=== PATIENT | female | born 1980 | race Caucasian/White ===

== ENCOUNTER 2021-12-05 17:08 | Inpatient (IN) | payer OTHER, SELFPAY ==
[2021-12-05] VITALS (26 sets, daily range): BP systolic 112–178; BP diastolic 55–89; PULSE 57–81; TEMP 36.8–37.3; O2SAT 100
--- OUTSIDE RECORDS SUMMARY | 2021-12-05 18:38 | XMS_ITS ---
:1980 Author Care Team Providers Name Role Phone JANETTE ACEVEDO MD Spear Fisher [phone] Allergies Code Code System Name Reaction Severity Status Onset Sulfa ? ? Active ? (Sulfonamid e Antibiotics ) Medications Name Status Start Date Stop Date ? ? azithromycin 500 mg tablet Completed ? 05/23 TAKE 2 TABLETS BY MOUTH AT THE SAME TIME WITH FOOD DIRECTED BY BD Regular Bevel [place] 27 gauge x 1/2 Active ? Not available TO ADMINISTER MENOPUR estradiol 2 mg tablet Active ? Not availa ble TAKE 1 TABLET BY MOUTH TWICE DAILY WHEN DIRECTED BY medroxyprogesterone 10 mg tablet Completed ? 05/23/2021 methylprednisolone 8 mg tablet Completed ? 0 05/23/2021 TAKE 1 TABLET BY MOUTH TWICE DAILY FOR 5 DAYS DIRECTED BY MD Lamar () 0.25 mg-35 mcg tablet Active ? Not available TAKE 1 TABLET BY MOUTH ONCE DAILY. TAKE ONLY ACTIVE PILLS. Problems Name Status Onset Date Source ? Irregular Periods Active 05/23/2021 ? Unknown 05/23/2021 ? Procedures Date Name Performed by ? 06/15/2021 US, Obstetric, Maternal Imaging Floridalma mariee D/B/A [facility] Imaging Evaluation + Anatomy [address] [place] [address] (Work Place) Results
--- OUTSIDE RECORDS SUMMARY | 2021-12-05 18:39 | XMS_ITS | Encounter Summary ---
:1980 Author Reason for Visit OB visit [id number] Assessment and Plan 1. Routine care 2. Vaginitis Discussed use of mild soap lik e dove or ivory, cotton underwear w/out dye, hypoallergenic detergent, wipe from fron t to back, avoid tub baths, keep perineum clean and dry, d/c use of baby wipes. En couraged daily intake of yogurt or womens health probiotic. Internal and external affirm collected. ? Diflucan 150 mg tablet Discussion Note: None recorded.Patient educational handouts: No information available. Plan of Care Reminders Provider Appointments Ob Problem Sonny Chappell, [facility] 12/06/2021 9:30AM ? Induction Chula Najera, 12/07/2021 CN 5:00AM ? Ob Routine Stephanie Chappell CNM 12/10/2021 11:15AM Lab None ? ? recorded. Referral None ? ? recorded. Procedures None ? ? recorded. Surgeries None ? ? recorded. Imaging None ? ? recorded. Medications Name Start Date ? ? ? Medications Administered None recorded. Vitals Height Weight BMI Blood Pressure
--- OUTSIDE RECORDS SUMMARY | 2021-12-05 18:39 | XMS_ITS | Encounter Summary ---
:1980 Author Reason for Visit None recorded. Assessment and Plan 1. Placenta circumvallata ? US, obstetric, follow-up Discussion Note: None recorded.Patient educational handouts: No information available. Plan of Care Reminders Provider Appointments Ob Problem Sonny Chappell, [facility] 12/06/2021 9:30AM ? Induction Chula Najera, 12/07/2021 CN 5:00AM ? Ob Routine Stephanie Chappell, [facility] 12/10/2021 11:15AM Lab None ? ? recorded. Referral None ? ? recorded. Procedures None ? ? recorded. Surgeries None ? ? recorded. Imaging , [place] [facility], Follow-up 09/17/2021 Medications Name Start Date ? ? ? Medications Administered None recorded. Vitals None recorded. Results Lab Results None recorded. Allergies Code Code System Name Reaction Severity Onset Sulfa ? ? ? (Sulfonamide Antibiotics)
--- OUTSIDE RECORDS SUMMARY | 2021-12-05 18:39 | XMS_ITS | Encounter Summary ---
:1980 Author Reason for Visit NST [id number] EDC 12/07/2021 Assessment and Plan 1. Low lying placenta ? non-stress test Discussion Note: None recorded.Patient educational handouts: No information available. Plan of Care Reminders Provider Appointments Ob Problem Sonny Chappell, [facility] 12/06/2021 9:30AM ? Induction Chula Najera, 12/07/2021 CN 5:00AM ? Ob Routine Stephanie Chappell, [facility] 12/10/2021 11:15AM Lab None ? ? recorded. Referral None ? ? recorded. Procedures None ? ? recorded. Surgeries None ? ? recorded. Imaging Non-stress [place] Test 11/12/2021 Medications Name Start Date ? ? ? Medications Administered None recorded. Vitals Height 5 ft 3 in Results Lab Results None recorded. Allergies Code Code System Name Reaction Severity Onset Sulfa ? ? ? (Sulfonamide An
--- OUTSIDE RECORDS SUMMARY | 2021-12-05 18:39 | XMS_ITS | Encounter Summary ---
:1980 Author Reason for Visit NST [id number] EDC 12/07/2021 Assessment and Plan 1. Low lying placenta ? non-stress test Discussion Note: None recorded.Patient educational handouts: No information available. Plan of Care Reminders Provider Appointments Ob Problem Sonny Chappell, [facility] 12/06/2021 9:30AM ? Induction Chula Najera, 12/07/2021 CN 5:00AM ? Ob Routine Stephanie Chappell, [facility] 12/10/2021 11:15AM Lab None ? ? recorded. Referral None ? ? recorded. Procedures None ? ? recorded. Surgeries None ? ? recorded. Imaging Non-stress [place] Test 11/26/2021 Medications Name Start Date ? ? ? Medications Administered None recorded. Vitals Height Weight BMI Blood Pressure 5 ft 3 in 196 lbs 34.7 kg/m2 109/72 mm[Hg] Results Lab Results None recorded. Allergies Code Code System Name Reaction Severity Onset Sulfa ? ? ? (Sulfonamide
--- OUTSIDE RECORDS SUMMARY | 2021-12-05 18:39 | XMS_ITS | Encounter Summary ---
:1980 Author Reason for Visit OB visit Assessment and Plan 1. Routine care Discussion Note: None recorded.Patient educational handouts: No information available. Plan of Care Reminders Provider Appointments Ob Problem Sonny Chappell, [facility] 12/06/2021 9:30AM ? Induction Chula Najera, 12/07/2021 CNM 5:00AM ? Ob Routine Stephanie Chappell, [facility] 12/10/2021 11:15AM Lab None ? ? recorded. Referral None ? ? recorded. Procedures None ? ? recorded. Surgeries None ? ? recorded. Imaging None ? ? recorded. Medications Name Start Date ? ? ? Medications Administered None recorded. Vitals Height Weight BMI Blood Pressure 5 ft 3 in 195 lbs 34.5 kg/m2 115/71 mm[Hg] Results Lab Results None recorded. Allergies Code Code System Name Reaction Severity Onset Sulfa ? ? ? (Sulfonamide Antibiotics)
--- OUTSIDE RECORDS SUMMARY | 2021-12-05 18:39 | XMS_ITS | Encounter Summary ---
:1980 Author Reason for Visit OB visit Assessment and Plan 1. Advanced maternal age 2. IVF - in-vitro fertilization Discussion Note: None recorded.Patient educational handouts: No information available. Plan of Care Reminders Provider Appointments Ob Problem Sonny Chappell, [facility] 12/06/2021 9:30AM ? Induction Chula Najera, 12/07/2021 CN 5:00AM ? Ob Routine Stephanie Chappell [facility] 12/10/2021 11:15AM Lab None ? ? recorded. Referral None ? ? recorded. Procedures None ? ? recorded. Surgeries None ? ? recorded. Imaging None ? ? recorded. Medications Name Start Date ? ? ? Medications Administered None recorded. Vitals Height Weight BMI Blood Pressure 5 ft 3 in 195 lbs 34.5 kg/m2 116/73 mm[Hg] Results Lab Results None recorded. Allergies Code Code System Name Reaction Severity Onset Sulfa ? ? ? (Sulfonamide Antibiotics)
--- OUTSIDE RECORDS SUMMARY | 2021-12-05 18:39 | XMS_ITS | Encounter Summary ---
:1980 Author Reason for Visit None recorded. Assessment and Plan 1. IVF - in-vitro fertilization ? US, obstetric, biophysical profile + non-stress test Discussion Note: None recorded.Patient educational handouts: No information available. Plan of Care Reminders Provider Appointments Ob Problem Sonny Chappell, [facility] 12/06/2021 9:30AM ? Induction Chula Najera, 12/07/2021 CN 5:00AM ? Ob Routine Stephanie Chappell, [facility] 12/10/2021 11:15AM Lab None recorded. ? ? Referral None recorded. ? ? Procedures None recorded. ? ? Surgeries None recorded. ? ? Imaging US, Obstetric, [facility] Biophysical Profile + 11/26/2021 Non-stress Test Medications Name Start Date ? ? ? Medications Administered None recorded. Vitals None recorded. Results Lab Results None recorded. Allergies Code Code System Name Reaction Severity Onset Sulfa ? ? ? (Sulfonamide
--- OUTSIDE RECORDS SUMMARY | 2021-12-05 18:39 | XMS_ITS | Encounter Summary ---
:1980 Author Reason for Visit None recorded. Assessment and Plan 1. IVF - in-vitro fertilization ? non-stress test Discussion Note: None recorded.Patient educational handouts: No information available. Plan of Care Reminders Provider Appointments Ob Problem Sonny Chappell, [facility] 12/06/2021 9:30AM ? Induction Chula Najera, 12/07/2021 CN 5:00AM ? Ob Routine Stephanie Chappell, [facility] 12/10/2021 11:15AM Lab None ? ? recorded. Referral None ? ? recorded. Procedures None ? ? recorded. Surgeries None ? ? recorded. Imaging Non-stress [place] [facility] 12/03/2021 Medications Name Start Date ? ? ? Medications Administered None recorded. Vitals None recorded. Results Lab Results None recorded. Allergies Code Code System Name Reaction Severity Onset Sulfa ? ? ? (Sulfonamide Antibiotics)
--- OUTSIDE RECORDS SUMMARY | 2021-12-05 18:39 | XMS_ITS | Encounter Summary ---
:1980 Author Reason for Visit None recorded. Assessment and Plan 1. AND/OR placental disord er affecting management of mother ? US, obstetric, follow-up Discussion Note: None recorded.Patient educational handouts: No information available. Plan of Care Reminders Provider Appointments Ob Problem Sonny Chappell, [facility] 12/06/2021 9:30AM ? Induction Chula Najera, 12/07/2021 CN 5:00AM ? Ob Routine Stephanie Chappell, [facility] 12/10/2021 11:15AM Lab None ? ? recorded. Referral None ? ? recorded. Procedures None ? ? recorded. Surgeries None ? ? recorded. Imaging , [place] [facility], Follow-up 10/15/2021 Medications Name Start Date ? ? ? Medications Administered None recorded. Vitals None recorded. Results Lab Results None recorded. Allergies Code Code System Name Reaction Severity Onset Sulfa ? ? ? (Sulfonamide Antibiotics)
--- OUTSIDE RECORDS SUMMARY | 2021-12-05 18:39 | XMS_ITS | Encounter Summary ---
:1980 Author Reason for Visit None recorded. Assessment and Plan 1. IVF - in-vitro fertilization ? US, obstetric, biophysical profile + non-stress test Discussion Note: None recorded.Patient educational handouts: No information available. Plan of Care Reminders Provider Appointments Ob Problem Sonny Chappell, [facility] 12/06/2021 9:30AM ? Induction Chula Najera, 12/07/2021 CNM 5:00AM ? Ob Routine Stephanie Chappell, [facility] 12/10/2021 11:15AM Lab None recorded. ? ? Referral None recorded. ? ? Procedures None recorded. ? ? Surgeries None recorded. ? ? Imaging US, Obstetric, [facility] Biophysical Profile + 12/03/2021 Non-stress Test Medications Name Start Date ? ? ? Medications Administered None recorded. Vitals None recorded. Results Lab Results None recorded. Allergies Code Code System Name Reaction Severity Onset Sulfa ? ? ? (Sulfonamide
--- OUTSIDE RECORDS SUMMARY | 2021-12-05 18:39 | XMS_ITS | Encounter Summary ---
:1980 Author Reason for Visit OB visit pt is here today for her 30 week ob visi t. Assessment and Plan 1. Routine care Discussion Note: None recorded.Patient educational handouts: No information available. Plan of Care Reminders Provider Appointments Ob Problem Sonny Chappell, [facility] 12/06/2021 9:30AM ? Induction Chula Najera, 12/07/2021 CN 5:00AM ? Ob Routine Stephanie Chappell, [facility] 12/10/2021 11:15AM Lab None ? ? recorded. Referral None ? ? recorded. Procedures None ? ? recorded. Surgeries None ? ? recorded. Imaging None ? ? recorded. Medications Name Start Date ? ? ? Medications Administered None recorded. Vitals Height Weight BMI Blood Pressure 5 ft 3 in 194.8 lbs 34.5 kg/m2 110/64 mm[Hg] Results Lab Results None recorded. Allergies Code Code System Name Reaction Severity Onset Sulfa ? ? ? (Sulfonamide Antibiotics)
--- OUTSIDE RECORDS SUMMARY | 2021-12-05 18:39 | XMS_ITS | Encounter Summary ---
:1980 Author Reason for Visit OB visit 32w3d / NST scheduled with emi Assessment and Plan 1. Routine care Discussion Note: None recorded.Patient educational handouts: No information available. Plan of Care Reminders Provider Appointments Ob Problem Sonny Chappell, [facility] 12/06/2021 9:30AM ? Induction Chula Najera, 12/07/2021 CN 5:00AM ? Ob Routine Setphanie Chappell, [facility] 12/10/2021 11:15AM Lab None ? ? recorded. Referral None ? ? recorded. Procedures None ? ? recorded. Surgeries None ? ? recorded. Imaging None ? ? recorded. Medications Name Start Date ? ? ? Medications Administered None recorded. Vitals Height Weight BMI Blood Pressure 5 ft 3 in 196 lbs 34.7 kg/m2 107/73 mm[Hg] Results Lab Results None recorded. Allergies Code Code System Name Reaction Severity Onset Sulfa ? ? ? (Sulfonamide Antibiotics)
--- OUTSIDE RECORDS SUMMARY | 2021-12-05 18:39 | XMS_ITS | Encounter Summary ---
:1980 Author Reason for Visit None recorded. Assessment and Plan 1. Placenta circumvallata ? US, obstetric, follow-up Discussion Note: None recorded.Patient educational handouts: No information available. Plan of Care Reminders Provider Appointments Ob Problem Sonny Chappell, [facility] 12/06/2021 9:30AM ? Induction Chula Najera, 12/07/2021 CN 5:00AM ? Ob Routine Stephanie Chappell, [facility] 12/10/2021 11:15AM Lab None ? ? recorded. Referral None ? ? recorded. Procedures None ? ? recorded. Surgeries None ? ? recorded. Imaging , [place] [facility], Follow-up 11/12/2021 Medications Name Start Date ? ? ? Medications Administered None recorded. Vitals None recorded. Results Lab Results None recorded. Allergies Code Code System Name Reaction Severity Onset Sulfa ? ? ? (Sulfonamide Antibiotics)
--- OUTSIDE RECORDS SUMMARY | 2021-12-05 18:39 | XMS_ITS | Encounter Summary ---
:1980 Author Reason for Visit OB visit OB [id number] MAYRA 12/07/2021 LMP 03/01/2021 Assessment and Plan Assessment Note Patient is _39__weeks . Dis cussed plan. 1. Routine care Discussion Note: None recorded.Patient educational handouts: No information available. Plan of Care Reminders Provider Appointments Ob Problem Sonny Chappell, CN 12/06/2021 9:30AM ? Induction Chula Najera, 12/07/2021 CNM 5:00AM ? Ob Routine Stephanie Chappell, [facility] 12/10/2021 11:15AM Lab None ? ? recorded. Referral None ? ? recorded. Procedures None ? ? recorded. Surgeries None ? ? recorded. Imaging None ? ? recorded. Medications Name Start Date ? ? ? Medications Administered None recorded. Vitals Height Weight BMI Blood Pressure 5 ft 3 in 198 lbs 35.1 kg/m2 116/77 mm[Hg] Results Lab Results None recorded. Allergies Code Code System Name Reaction Severity Onset [place]
--- OUTSIDE RECORDS SUMMARY | 2021-12-05 18:39 | XMS_ITS | Encounter Summary ---
:1980 Author Reason for Visit OB visit Assessment and Plan Assessment Note Patient is ___weeks . Discu ssed plan. 1. Routine care Discussion Note: None recorded.Patient educational handouts: No information available. Plan of Care Reminders Provider Appointments Ob Problem Sonny Chappell, [facility] 12/06/2021 9:30AM ? Induction Chula Najera, 12/07/2021 CN 5:00AM ? Ob Routine Stephanie Chappell, [facility] 12/10/2021 11:15AM Lab None ? ? recorded. Referral None ? ? recorded. Procedures None ? ? recorded. Surgeries None ? ? recorded. Imaging None ? ? recorded. Medications Name Start Date ? ? ? Medications Administered None recorded. Vitals Height Weight BMI Blood Pressure 5 ft 3 in 198 lbs 35.1 kg/m2 115/73 mm[Hg] Results Lab Results None recorded. Allergies Code Code System Name Reaction Severity Onset Sulfa ? ? ? (Sulfonamide
--- OUTSIDE RECORDS SUMMARY | 2021-12-05 18:39 | XMS_ITS ---
:1980 Author Care Team Providers Name Role Phone Stephanie Chappell Primary Care Provider Unavailable Allergies Code Code System Name Reaction Severity Status Onset Sulfa ? ? Active ? (Sulfonamid e Antibiotics ) Medications Name Status Start Date Stop Date ? ? azithromycin 500 mg tablet Completed ? 07/13 TAKE 2 TABLETS BY MOUTH AT THE SAME TIME WITH FOOD DIRECTED BY BD Regular Bevel [place] 27 gauge x 1/2 Completed ? 09/17/2021 TO ADMINISTER MENOPUR estradiol 2 mg tablet Completed ? 07/13/2021 TAKE 1 TABLET BY MOUTH TWICE DAILY WHEN DIRECTED BY fluconazole 150 mg tablet Completed ? 2021 TAKE ONE TABLET BY MOUTH A ONE-TIME DOSE methylprednisolone 8 mg tablet Completed ? 0 07/13/2021 TAKE 1 TABLET BY MOUTH TWICE DAILY FOR 5 DAYS DIRECTED BY Active ? Not available Sprintec (28) 0.25 mg-35 mcg tablet Completed ? 07/13/2021 TAKE 1 TABLET BY MOUTH ONCE DAILY. TAKE ONLY ACTIVE PILLS. triamcinolone acetonide 0.1 % topical Completed ? 09/17/2021 cream Problems Name Status Onset Date Source ? Active 07/13/2021 ? Procedures Date Name Performed by ? 03/21/2021 IVF - in Vitro Fertilization with Pre-im [place] Genetic Diagnosis Information not available
--- OUTSIDE RECORDS SUMMARY | 2021-12-05 18:39 | XMS_ITS | Encounter Summary ---
:1980 Author Reason for Visit OB visit OB [id number] EDC 12/07/2021 LMP 03/01/2021 Assessment and Plan Assessment Note Patient is _38__weeks . Dis cussed plan. 1. Routine care Discussion Note: None recorded.Patient educational handouts: No information available. Plan of Care Reminders Provider Appointments Ob Problem Sonny Chappell, CN 12/06/2021 9:30AM ? Induction Chula Najera, 12/07/2021 CN 5:00AM ? Ob Routine Stephanie Chappell, [facility] 12/10/2021 11:15AM Lab None ? ? [...]
--- OUTSIDE RECORDS SUMMARY | 2021-12-05 18:39 | XMS_ITS | Encounter Summary ---
:1980 Author Reason for Visit OB visit 28w3d Assessment and Plan 1. Routine care Discussion Note: None recorded.Patient educational handouts: No information available. Plan of Care Reminders Provider Appointments Ob Problem Sonny Chappell, [facility] 12/06/2021 9:30AM ? Induction Chula Najera, 12/07/2021 CN 5:00AM ? Ob Routine Stephanie Chappell, [facility] 12/10/2021 11:15AM Lab None ? ? recorded. Referral None ? ? recorded. Procedures None ? ? recorded. Surgeries None ? ? recorded. Imaging None ? ? recorded. Medications Name Start Date ? ? ? Medications Administered None recorded. Vitals Height Weight BMI Blood Pressure 5 ft 3 in 191 lbs 33.8 kg/m2 104/70 mm[Hg] Results Lab Results None recorded. Allergies Code Code System Name Reaction Severity Onset Sulfa ? ? ? (Sulfonamide Antibiotics)
--- OUTSIDE RECORDS SUMMARY | 2021-12-05 18:39 | XMS_ITS | Encounter Summary ---
:1980 Author Reason for Visit None recorded. Assessment and Plan 1. IVF - in-vitro fertilization ? US, obstetric, biophysical profile + non-stress test Discussion Note: None recorded.Patient educational handouts: No information available. Plan of Care Reminders Provider Appointments Ob Problem Sonny Chappell, [facility] 12/06/2021 9:30AM ? Induction Chula Najera, 12/07/2021 CNM 5:00AM ? Ob Routine Stephanie Chappell, [facility] 12/10/2021 11:15AM Lab None recorded. ? ? Referral None recorded. ? ? Procedures None recorded. ? ? Surgeries None recorded. ? ? Imaging US, Obstetric, [facility] Biophysical Profile + 11/19/2021 Non-stress Test Medications Name Start Date ? ? ? Medications Administered None recorded. Vitals None recorded. Results Lab Results None recorded. Allergies Code Code System Name Reaction Severity Onset Sulfa ? ? ? (Sulfonamide
--- OUTSIDE RECORDS SUMMARY | 2021-12-05 18:39 | XMS_ITS | Encounter Summary ---
:1980 Author Reason for Visit NST [id number] EDC 12/07/2021 Assessment and Plan 1. Low lying placenta ? non-stress test Discussion Note: None recorded.Patient educational handouts: No information available. Plan of Care Reminders Provider Appointments Ob Problem Sonny Chappell, [facility] 12/06/2021 9:30AM ? Induction Chula Najera, 12/07/2021 CN 5:00AM ? Ob Routine Stephanie Chappell, [facility] 12/10/2021 11:15AM Lab None ? ? recorded. Referral None ? ? recorded. Procedures None ? ? recorded. Surgeries None ? ? recorded. Imaging Non-stress [place] Test 11/19/2021 Medications Name Start Date ? ? ? Medications Administered None recorded. Vitals Height Weight BMI Blood Pressure 5 ft 3 in 198 lbs 35.1 kg/m2 115/73 mm[Hg] Results Lab Results None recorded. Allergies Code Code System Name Reaction Severity Onset Sulfa ? ? ? (Sulfonamide
--- NOTE | 2021-12-05 18:48 | WPDOBADMIT ---
Obstetrics - Admit Note Admission Note: record reviewed. No pertinent additions to the history and/or any subsequent changes in the physical findings that are not consistent with the expected course of the were found. Pt admitted for bleeding today, small brown to red on pad multiple x, no active bleeding SVE 3-/-1, dr weiss aware, plan IOL,AROM minimal amount of clear odorless fluid Additions to the history and/or subsequent changes in the physical findings follow. None.
[2021-12-05] MEDS: LACTATED RINGERS 1,000 ML 125 ML IV CONT (19:00)
[2021-12-05 19:14] LABS: Basophils Percent Auto 0.2 % (0.2-1.2); Eosinophils Absolute Auto 0.1 K/mm3 (0-0.3); Eosinophils Percent Auto 0.4 % (0-4.4); Hematocrit 34.8 % (37.0-47.0); Hemoglobin 11.9 g/dL (12.0-15.0); Immature Granulocyte Absolute 0.07 K/mm3 (0.00-0.031); Immature Granulocyte Percent A 0.6 % (0-0.5); Lymphocytes Absolute Auto 1.51 K/mm3 (0.9-3.2); Lymphocytes Percent Auto 12.8 % (18.3-44.2); Mean Corpuscular HGB Conc 34.2 g/dl (32-36); Mean Corpuscular Hemoglobin 30.7 pg (26-34); Mean Corpuscular Volume 89.9 fl (80-100); Mean Platelet Volume 10.1 fl (7.4-10.4); Monocytes Absolute Auto 0.8 K/mm3 (0.1-0.6); Monocytes Percent Auto 6.6 % (2.6-8.5); Neutrophils Absolute Auto 9.4 K/mm3 (1.3-6.7); Neutrophils Percent Auto 79.4 % (45.5-73.1); Platelet Count Result 190 k/mm3 (150-375); Red Blood Count 3.87 M/mm3 (4.2-5.4); White Blood Count 11.8 K/mm3 (4.5-10.0)
--- NOTE | 2021-12-05 19:27 | LDADM ---
This patient, Kenyatta Valiente, was admitted to Labor/Delivery/Recovery 105 on 12/05/21 at 17:08. Plans for labor, pain management and were discussed with patient. Patient/family oriented to hospital policies and general routines including ID bracelet, bed and alarms, visiting hours, pain management, procedures, bathroom and other care routines, personal items, smoking policy, room service/diet and guest tray routines, infant security routines, and visiting hours. Patient/Family are encouraged to report perceived risks to care and to ask questions if they do not understand what they are told or what they should do. See OBIX for further documentation.
--- NOTE | 2021-12-05 20:49 | WPDANESEPP ---
Anes - Eval Pre Procedure Procedure: labor epidural Date/Time: 12/05/21 20:49 Surgeon: abhishek Pre Op Diagnosis: labor Patient Data Age: 41 Gender: F Height: Weight: Last Vital Signs Temp 37.3 C 12/05/21 19:30 Pulse 59 L 12/05/21 20:46 BP 178/82 H 12/05/21 20:46 Allergies Allergy/AdvReac Type Severity Reaction Status Date / Time Sulfa (Sulfonamide Allergy Hives Verified 11/12/21 14:06 Antibiotics) Home Medications Medication Instructions Recorded Confirmed Type PNV cmb#95-ferrous fumarate-FA 1 tablet PO DAILY 11/12/21 11/12/21 History [] Laboratory Tests 12/05/21 12/05/21 12/05/21 19:03 19:03 19:03 WBC 11.8 K/mm3 H K/mm3 (4.5-10.0) RBC 3.87 M/mm3 L M/mm3 (4.2-5.4) Hgb 11.9 g/dL L g/dL (12.0-15.0) Hct 34.8 % L % (37.0-47.0) MCV 89.9 fl fl (80-100) MCH 30.7 pg pg (26-34) MCHC 34.2 g/dl g/dl (32-36) RDW 14.0 % % (11.5-14.5) Plt Count 190 k/mm3 k/mm3 (150-375) MPV 10.1 fl fl (7.4-10.4) Immature Gran % (Auto) 0.6 % H % (0-0.5) Neut % (Auto) 79.4 % H % (45.5-73.1) Lymph % (Auto) 12.8 % L % (18.3-44.2) [place] % (Auto) 6.6 % % (2.6-8.5) Eos % (Auto) 0.4 % % (0-4.4) Baso % (Auto) 0.2 % % (0.2-1.2) Lymph # (Auto) 1.51 K/mm3 K/mm3 (0.9-3.2) [place] # (Auto) 0.8 K/mm3 H K/mm3 (0.1-0.6) Eos # (Auto) 0.1 K/mm3 K/mm3 (0-0.3) Baso # (Auto) 0.0 K/mm3 K/mm3 (0.0-0.1) Abs Immat Gran (auto) 0.07 K/mm3 H K/mm3 (0.00-0.031) Absolute Neuts (auto) 9.4 K/mm3 H K/mm3 (1.3-6.7) Absolute Nucleated RBC 0.0 K/mm3 K/mm3 (0.0-0.012) Nucleated RBC % 0.0 % % (0.0-0.2) RPR Pending Blood Type B Positive Antibody Screen Negative Patient hx anesthesia problems: none Family hx anesthesia problems: none Results Review: All pre-operative results and documents have been reviewed as part of the pre-operative evaluation. [facility] Family History Family History (Updated 11/12/21 @ 14:08 by Ottoniel Beach RN) Mother Hypertension Heart disease Heart attack Father Social History Social History Smoking status: Never smoker Second hand tobacco smoke exposure: No Substance use: never Spiritual care concerns: No Exam Day of Procedure 12/05/21 20:49
[2021-12-05] MEDS: LIDOCAINE HCL 1% PF 30 ML VIAL (21:15)
[2021-12-05] MEDS: IBUPROFEN 600 MG TABLET PO (21:25)
--- NOTE | 2021-12-05 21:26 | PM.OBPRVD ---
OB - Delivery Note Procedure Delivery date: 12/05/21 Procedure: vaginal delivery Events: Other (bleeding) Delivery augmentation: Rupture of Membranes Laceration Description: Perineal - 1st Degree Delivery repair: vicryl Specimen: Yes Quantitative Blood Loss (ml): 100 Anesthesia type: Epidural Disposition: floor Baby Date of : 12/05/21 Time of : 21:04 Weeks of gestation at delivery: 39 gender: Male Weight (pounds): 7 Weight (ounces): 8 presentation: vertex position: Right Occiput Anterior Placenta delivery description: Spontaneous Cord Vessel Description: 3 Vessels, Nuchal Cord, Tight, Clamped/Cut, Delayed Cord Clamping, Around Body and Around Extremity score one minute: 8 score five minutes: 9 Narrative: CNM at bs seconds after head, tight nuchal cord, delivered through and mother and baby in stable condition
[2021-12-06 00:15] VITALS: BP 107/62; PULSE 58; RESP 18; TEMP 36.6; O2SAT 98
[2021-12-06 04:30] VITALS: BP 92/54; PULSE 68; RESP 18; TEMP 36.8; O2SAT 98
[2021-12-06 05:31] LABS: Hematocrit 30.5 % (37.0-47.0); Hemoglobin 10.4 g/dL (12.0-15.0)
[2021-12-06 07:15] VITALS: BP 111/75; PULSE 63; RESP 16; TEMP 37.2; O2SAT 99
[2021-12-06 07:28] LABS: Rapid Plasma Reagin Non-Reactive (NonReactive)
--- NOTE | 2021-12-06 07:49 | PM.OBPNVD ---
OB - PN: Subj Subjective Date/time seen: 12/06/21 07:49 Patient comments: no complaints baby status: doing well OB - PN: Obj Data Labs CBC & Chem 7: 12/06/21 04:40 Labs: Laboratory Results - last 24 hr 12/05/21 12/05/21 12/05/21 19:03 19:03 19:03 WBC 11.8 H RBC 3.87 L Hgb 11.9 L Hct 34.8 L MCV 89.9 MCH 30.7 MCHC 34.2 RDW 14.0 Plt Count 190 MPV 10.1 Immature Gran % (Auto) 0.6 H Neut % (Auto) 79.4 H Lymph % (Auto) 12.8 L [place] % (Auto) 6.6 Eos % (Auto) 0.4 Baso % (Auto) 0.2 Lymph # (Auto) 1.51 [place] # (Auto) 0.8 H Eos # (Auto) 0.1 Baso # (Auto) 0.0 Abs Immat Gran (auto) 0.07 H Absolute Neuts (auto) 9.4 H Absolute Nucleated RBC 0.0 Nucleated RBC % 0.0 RPR Non-reactive Blood Type B Positive Antibody Screen Negative 12/06/21 04:40 WBC RBC Hgb 10.4 L Hct 30.5 L MCV MCH MCHC RDW Plt Count MPV Immature Gran % (Auto) Neut % (Auto) Lymph % (Auto) [place] % (Auto) Eos % (Auto) Baso % (Auto) Lymph # (Auto) [place] # (Auto) Eos # (Auto) Baso # (Auto) Abs Immat Gran (auto) Absolute Neuts (auto) Absolute Nucleated RBC Nucleated RBC % RPR Blood Type Antibody Screen OB - PN A/P Plan day: 1 Plan: routine care Time Spent With Patient Time: Total time spent is greater than 50% in coordination of care (as documented) at patient's floor/unit and/or counseling patient: Time with patient: less than 15 minutes Review of Systems Review of Systems: All systems reviewed & are unremarkable except as noted in HPI and below Exam Narrative: Fundus firm and vaginal flow controlled. No lower ext redness, warmth, or edema. Negative homans. Const: General: comfortable Chest: Breast/axilla inspection: normal inspection of the breasts Resp: Effort & Inspection: normal respiratory effort Cardio: Rate: regular rate GI: GI Palp: Yes Soft to palpation Psych: Appearance: grossly normal Affect: normal affect Attitude: cooperative Thought content: Yes Normal thought content present Judgement: Good judgement present (Psych)
--- NOTE | 2021-12-06 07:55 | PC.NURSE ---
0730 -Introductions were made and mother led the discussion of her desires and plans to feeding her baby. Reviewed handwashing to prevent infection before and after taking care of her baby. Mother verbalizes she is able to independently latch . Discussed how to watch for early feeding cues, place infant skin to skin, then feeding baby when infant is ready optimally 8-12 times in 24 hours. Mother demonstrated positioning/alignment. Encouraged mother with infant to the right breast in football position using nipple to nose with asymmetrical 140-degree latch. She denies any nipple discomfort. Latch assessed is less than 140 degrees and infant is making clicking noises. Reviewed there is to be no pain with , how to detach from the breast, visuals to watch for to confirm effective . Reviewed effective latching with resources with visual tool. Nipple tenderness is relieved with improving positioning and effective latching. Use of warm, wet compress to nipples and air dry for improved comfort. Infant was able to maintain effective latch. Mother has verbalized understanding watching for feeding cues for responsive feeding or how to stimulate to feed when she sees feeding cues, 8-12 times in 24 hours (approximately every 2-3 hours from the start of the last feeding) and to call for assistance if baby is not latching or she has discomfort with nursing. Reported to primary RN.
[2021-12-06 08:08] VITALS: BMI 34.6
[2021-12-06] MEDS: DOCUSATE SODIUM 100 MG CAPSULE PO ×2 (08:55→17:39)
[2021-12-06] MEDS: MULTIVIT/MIN/PREN/FOL AC/IRON TABLET 1 TAB PO (08:55)
[2021-12-06 11:37] VITALS: BP 102/54; PULSE 79; RESP 18; TEMP 36.9; O2SAT 99
[2021-12-06] MEDS: IBUPROFEN 600 MG TABLET PO ×2 (11:44→17:39)
--- NOTE | 2021-12-06 15:04 | PC.NURSE ---
1340 - Consulted with patient, reviewed infant feeding cues, frequencies, duration of feedings, feeding elimination flow sheet, and signs of adequate intake. Demonstrated stimulation techniques to wake for feeding. Mom is having challenges waking infant to latch. She is expressing colostrum into infants mouth. Baby was circumcised early today and given Tylenol. Assisted mom with to breast. Reviewed positioning/alignment, holding breast and asymmetrical latch on. Infant was sleepy and reluctant. Primary nurse called and will obtain a blood sugar. Mother states she used a nipple shield and pumped with her first child and doesn't want to do that again, however, will attempt with a nipple shield as a temporary tool. Risk and benefits were discussed with mother with regards to using the breast tool. Mom requests assistance with in football position. After several attempts with stimulating with colostrum and position changes an optimal latch was achieved at 1420. Infant nursed eagerly, with steady draws and occasional swallowing noted with a suck /swallow ratio mostly 3:1. Reviewed signs of a correct latch, effective nursing and suck/swallow ratio. was able to maintain latch without discomfort to mother. Nipple care reviewed. Reminded parents to use good handwashing to prevent infection. has had feedings in the past 24 hours and meets the outcomes for weight, output and jaundice. There is not an order for discharge at this time but patient strongly desires to go home. Mother states she feels confident to continue effectively her at home. Reviewed production of human milk, transition of milk, signs of adequate intake and engorgement prevention/relief and when to call the infant care provider using the mom and baby guide. Reviewed community resources and outpatient services as listed in the mom and baby guide. Reinforced watching for feeding cues with responsive feeding, how to stimulate infant to initiate feeding three hours from the start of the last feeding, positioning, baby is to not miss two consecutive feedings in a row, intake/output and to call if there is discomfort with or doesn't latch. Mother verbalized understanding that infant is to eat 8-12 times in 24 hours. Mother voiced understanding of information shared. Reported to primary RN.
[2021-12-06 15:45] VITALS: BP 99/52; PULSE 68; RESP 18; TEMP 36.8; O2SAT 97
--- NOTE | 2021-12-06 15:45 | PC.NURSE ---
PT introductions made and plan of care discussed per post , pain management, breast feeding, daily care activities and pending discharge to home. PT received such instructions per protocol and one to one discussion, mom baby care guide and demonstrations this shift. PT sole recipient of such instructions and no barriers to learning identified. PT verbalized understanding of such care.
[2021-12-06 20:50] VITALS: BP 109/60; PULSE 86; RESP 16; RESP 18; TEMP 36.9; O2SAT 95
[2021-12-08 11:45] VITALS: BP 118/63; PULSE 68; RESP 20; TEMP 36.7; O2SAT 100
--- NOTE | 2021-12-12 06:26 | PM.OBDSVD ---
DS: Admitting Diagnosis Discharge Date 12/06/21 Admitting Diagnosis labor OB - DS: Summary OB Procedures : None OB Procedures Intrapartum: Spontaneous Vag Delivery OB Procedures: : None Time Spent with Patient Time attestation: Total time spent providing and/or coordinating discharge services: DS: Data Data Completed and Pending Completed studies during hospitalization: Pending at discharge 12/05/21 21:10 Surgical [PTH] Routine Discharge Plan Discharge Consulting providers: Chula Najera Kacey A. Discharging Clinician: Manny Chawla Patient Disposition: Home, Self-Care Activity: may shower, no driving, as tolerated, pelvic rest and other - see discharge instructions Diet: regular Discharge Instructions: Education: Mom and Baby Guide Given to: Mother Follow-Up: Call your delivering provider's office for an appointment to be seen in: 6 Weeks Mom and baby should come to the [facility] for the follow-up appointment. Appointment Date/Time: December 08, 2021 at 11:00 am What to expect at your follow-up visit: Blood Pressure Check Physical Assessment Call [phone] if you are unable to keep your appointment time. BREAST CARE: * Wear a snug supportive bra. * For engorgement discomfort: Breast Feeding: * Apply warm moist washcloths * Express milk as needed to relieve engorgement * Wear loose clothing * For sore nipples: * Identify correct latch-on * Apply warm moist washcloths before and after nursing * Air dry nipples after nursing * May apply Lansinoh cream to nipples EPISIOTOMY/PERINEAL CARE: * Until bleeding stops, use your rajinder bottle after urinating * Change your pad frequently throughout the day * You may take sitz baths several times a day (fill your bathtub with warm water and soak for 20 minutes.) Do NOT bathe in the water * No tub baths until seen by your physician - You may shower ACTIVITY: * Rest as much as possible. * Do not exercise or lift anything heavier than your baby (such as laundry or other children.) * Avoid stairs or driving as much as possible. * Do not put anything into the vagina. No douching, tampons, or sexual activity until seen by physician. NOTIFY PHYSICIAN IF YOU HAVE ANY QUESTIONS OR IF ANY OF THE FOLLOWING SYMPTOMS OCCUR: * If your episiotomy or incision becomes red, swollen, or more painful than what you have experienced in the hospital. * If your vaginal bleeding becomes foul smelling. * If your vaginal bleeding becomes more heavy than a period or if your bleeding changes from pink to bright red. However, you may pass an occasional walnut-sized clot once or twice for the first week . * If you experience a sharp, shooting pain in you calves. * If you discover a hard, reddened area on your breast or if you experience flu-like symptoms. DIET: * Eat regular, well-balanced meals. * Drink plenty of fluids daily. If , drink to thirst. Patient Instructions: Antibiotic Form Stand Alone Forms: General Discharge Information Follow-up/Referrals: Manny Chawla MD [Physician] - Discharge Medications: New acetaminophen [Mapap (acetaminophen)] 325 mg Tablet 650 mg PO Q6H PRN (Reason: Mild Pain (1-3) Or Headache) RF: 0 docusate sodium 100 mg Capsule 100 mg PO BID PRN (Reason: Constipation) RF: 0 ibuprofen 600 mg Tablet 600 mg PO Q6H PRN (Reason: Cramping) RF: 0 KPN Tablet 1 tab PO DAILY RF: 0 Discontinued PNV [id number] [] 28 mg iron- 800 mcg Tablet 1 tablet PO DAILY RF: 0 Date of admission: 12/05/21 17:08 Primary Care Provider: PHYSICIAN,HANDLE ASSEMBLER Admitting Provider: Manny Chawla Attending physician on admission: Manny Chawla Condition: Stable
== END 2021-12-06 23:20 | disposition home or self-care (01) | DRG 560 ==
LOC: ANHLDR 18:40 → ANHOB2 23:55
PROVIDERS: Advanced Practice Midwife; Admitting Provider Obstetrics & Gynecology; Visit Provider Obstetrics & Gynecology
DX: O69.2XX0 Labor and delivery complicated by other cord entanglement, with compression, not applicable or unspecified (principal); O70.0 First degree perineal laceration during delivery; O76 Abnormality in fetal heart rate and rhythm complicating labor and delivery; Z3A.39 39 weeks gestation of pregnancy; Z37.0 Single live birth
CPT/HCPCS: 36415; 85014; 85018; 85025; 86592; 86850; 86900; 86901; 88307; A9270; J2795; J7120